=== PATIENT | female | born 1995 | race Caucasian/White ===

== ENCOUNTER 2024-10-08 06:11 | Inpatient (IN) | payer BC, SELFPAY ==
[2024-10-08] VITALS (19 sets, daily range): BP systolic 105–113; BP diastolic 63–73; PULSE 60–116; RESP 16–60; TEMP 36.5–37.1; O2SAT 98–100; BMI 24.0
[2024-10-08 06:06] LABS: Amnisure Rom* POSITIVE
--- NOTE | 2024-10-08 07:31 | P.OBHP_ITS ---
OB - H&P: HPI Labor/Induction History of Present Illness Time Seen by Provider: 07:31 Date Seen: 10/08/24 Chief Complaint: The patient is a 29 year old 1 para 0 at 39.4 weeks gestation by 7 week ultrasound. She presents with SROM. Chief complaint: Maternity : 1 Para: 0 Narrative: Kat Banks is a 29 year old female who present after SROM at 0420 this morning. Patient has a bicornuate uterus. Patient has otherwise had an uncomplicated . History of Present Dating criteria: based on 1st trimester US only (7 days off of LMP, 7 week ultrasound) Ultrasounds: normal 1st trimester US (did have endometrial products on left endometrial canal. ) and normal mid trimester US Medical complications: none Labs Blood type: A (+) positive Rubella: immune RPR/VDLR: nonreactive GBS status: negative HBsAG: negative Review of Systems Status of ROS: Reports: 10 or more systems reviewed and unremarkable except as noted in History and below Meds Home Medications and Allergies Home Medications ?Medication ?Instructions ?Recorded ?Confirmed ?Type multivitamin (Daily Multi-Vitamin 1 tab PO DAILY 10/0810/08/24 History tablet) OB - H&P: Exam Physical Exam: Vital signs: Temp Pulse Resp BP 98.5 F 75 16 113/66 10/08/24 05:45 10/08/24 07:29 10/08/24 05:45 10/08/24 07:29 Constitutional: Constitutional: no acute distress Routine HEENT Exam: Head: Present atraumatic and normal inspection Routine Neck Exam: Neck: Present full ROM Detailed Neck Exam: Thyroids: Thyroid: Present normal Routine Respiratory Exam: Respiratory: Present CTA bilaterally Routine Cardiovascular Exam: Cardiovascular: RRR, S1 and S2 Detailed Labor and Delivery Exam: Patient Gravid: yes Tachysystole: No Fetus (Single): Amniotic Membrane Status: SROM Amniotic Membrane Fluid Description: Clear Heart Rate Baseline: 135 Monitor Accelerations: Present Monitor Decelerations: None Wet Pour Mixer Variability: Moderate (6-25) Routine Back/Spine/Pelvis Exam: Back/Spine: full ROM Routine Skin Exam: Present intact Routine Neurological Exam: Present alert and oriented X3 OB - Problem Based A/P Additional Plan (1) SROM (spontaneous rupture of membranes): Problem details: SROM 10/08 at 0420, clear fluid. Had another large gush while walking into unit. Status: Acute (2) Term : Status: Acute (3) Bicornuate uterus: Problem details: baby is on right side of bicornuate uterus. Status: Acute Plan Patient prefers expectant management - recommend oral cytotec vs IV pitocin if no painful contractions have started after 4 hours of monitoring. - anticipate Delivery/Labor/Induction Plan Plan: expectant management
--- NOTE | 2024-10-08 14:55 | PM.OBPNL ---
Subjective Date Seen: 10/08/24 Narrative: Received report from nursing. Patient rates pain 3/10. continues to desire expectant management. Does not desire any intervention. Ruptured at 0420 this morning. Objective Exam: Exam not performed Vital Signs: Last Vital Signs Temp 97.7 F 10/08/24 14:41 Pulse 71 10/08/24 12:52 Resp 16 10/08/24 14:41 BP 105/66 10/08/24 12:52 Pelvic Exam Dilation (cm): 1.5 Effacement (%): 70 Station: -1 Comments: medium/posterior=-- exam per bedside RN Contractions Contraction Frequency: 5 Contraction pattern: Irregular Assessment Assessment: prodromal labor Station: -1 Amniotic Membrane Status: SROM Status: Category l Heart Rate Baseline: 135 Writer [employer] Publications Variability: Moderate (6-25) Monitor Accelerations: Present Monitor Decelerations: None Plan Plan: - Patient is making slow cervical change. Love score now 6. We have discussed risk of prolonged rupture of membrane including infection risk. Patient continues to desire no intervention at this time. She remains afebrile. Is idania some, has made some cervical change. Slow progress. Will continue to monitor and maternal status. - encourage frequent position changes - favorable enough we may be able to consider pitocin if patient is willing - continue with heart monitoring/intermittent auscultation. - desires no analgesia, anticipate .
--- NOTE | 2024-10-08 22:27 | P.OBPN_ITS ---
Subjective Time Seen by Provider: 22:27 Date Seen: 10/08/24 Narrative: Patient is feeling urge to push with contractions. Has declined monitoring for several hours. She is very uncomfortable. Objective Exam: appears uncomfortable with contractions. Abdomen gravid. Vital Signs: Last Vital Signs Temp 98.3 F 10/08/24 22:22 Pulse 78 10/08/24 21:21 Resp 16 10/08/24 18:45 BP 110/69 10/08/24 21:21 Pelvic Exam Dilation (cm): 6 Effacement (%): 95 Station: +1 Contractions Monitor mode: External Contraction Frequency: 2-3 Contraction pattern: Regular Contraction intensity: Strong/Firm Pitocin Rate (mU/min): 0 Assessment Assessment: active labor Station: +1 Amniotic Membrane Status: SROM Status: Category l Heart Rate Baseline: 120 Retirement Variability: Moderate (6-25) Monitor Accelerations: Present Monitor Decelerations: Early Tracing Comments: Patient allowed monitoring starting at 2210 after conversation of safety of baby. Labor Progress: Progressing well without intervention. Plan Plan: - anticipate - encouraging regular position changes - monitoring as allowed by patient. Discussed risks of not monitoring baby - encourage to support through pain of labor. Bedside nurse Yaquelin at bedside offering non pharmacologic comfort measures. Partner Ernesto at side offering appropriate support.
[2024-10-09] VITALS (15 sets, daily range): BP systolic 100–115; BP diastolic 59–72; PULSE 85–127; RESP 16; TEMP 36.8–36.9; O2SAT 98–99
[2024-10-09] MEDS: OXYTOCIN 10 UNIT/ML INJ IM (00:37)
[2024-10-09] MEDS: LIDOCAINE 1 % PF 30 ML INJECTION (00:49)
--- NOTE | 2024-10-09 01:25 | W.PM.OBVAGDE ---
OB Procedure Vag Delivery Mother Details Mother Details: The patient is a 29 year-old, 1, Para 1, admitted on 10/08/24 at 39.4 Days gestation with SROM at 0420. She declined all intervention, did finally agree to monitoring. Progressed slowly throughout the day. Once active, progressed more rapidly. : 1 Para: 0 Weeks Gestation: 39.5 Admission Date: 10/08/24 Additional Details Amniotic Membrane Status: SROM Amniotic Membrane Rupture Date: 10/08/24 Amniotic Membrane Rupture Time: 04:20 Amniotic Membrane Fluid Description: Clear Analgesia/Anesthesia Type: None Waterbirth: No Pitcoin: No Intrapartal Events: Excessive Bleeding Labor Onset: 20:00 Complete: 00:03 Pushin:06 Heart: heart tones during second stage were reassuring. Did have some late decels with pushing that resolved between contractions. Had terminal decel to 80s and 90s just prior to delivery. Delivery Details Delivery Date: 10/09/24 Delivery Time: 00:33 Route of delivery: Infant Gender: Female Infant Viability: Alive; Heart Rate Present Position at Delivery: OA Delivery Details: Patient was pushing on labor stool. Pushed very effectively and Delivered via spontaneous vaginal delivery. was placed on maternal abdomen.? nuchal cord was delivered through. Cord was clamped and cut after a 60 second delay. Nose and mouth were bulb suctioned.? Infant weight pending. Patient had excessive bleeding while still on birthing stool. Placenta delivered almost immediately after baby spontaneously. We moved mom to bed and found 2nd degree laceration that required repair. Patient had declined pitocin, but agreed to IM pitocin after bleeding was excessive. 1 Minute Interval Total Score: 8 5 Minute Interval Total Score: 9 Additional Details Shoulder Dystocia: No Placenta Delivery Time: 00:36 Placental Delivery Description: Spontaneous Delivery repair: Vicryl Procedure Done: Global Blood Loss: 1,270 Laceration: Vaginal - 2nd Degree Blood Loss Measurement Type: QBL Bakri Used: No Sponge/Need Count Correct: Yes Cord Vessel Description: 3 Vessels, Nuchal Cord and Delivered through Event Summary Status: Mother and infant were stable after delivery. Feeling well. Will continue to monitor bleeding given hemorrhage, though uterus is 2 under umbilicus, firm. Disposition: no change
[2024-10-09] MEDS: ACETAMINOPHEN 500 MG TABLET 1000 MG PO (01:31)
[2024-10-09 06:22] LABS: Hemoglobin* 12.2 gm/dL (12.0-16.0)
[2024-10-10 04:07] VITALS: BP 91/45; PULSE 98; RESP 16; TEMP 36.6; O2SAT 99
[2024-10-10 06:33] LABS: Hemoglobin* 9.8 gm/dL (12.0-16.0)
--- NOTE | 2024-10-10 08:54 | PM.OBDSVD1 ---
DS: Providers Provider Time Seen by Provider: 08:55 Date Seen: 10/10/24 Date of admission: 10/08/24 06:11 Primary care physician: Allyson Diaz MD Admitting Clinician: Barbi Levine MD Attending Physician on discharge: Maru Remy MD Date of Discharge: 10/10/24 DS: Diagnosis Discharge Diagnosis (1) (normal spontaneous vaginal delivery): Status: Acute (2) hemorrhage: Status: Acute Exam Narrative: Exam Narrative: General appearance: Well-appearing adult female. Alert, oriented and appropriate. Sitting up in hospital bed. HEENT: EOMI, no conjunctival injection or discharge. MMM. Neck: Supple. CV: RRR, no rubs, murmurs or extra heart sounds. Pulm: CTAB, no wheezes, rales or rhonchi. Abdomen: Soft, non-tender. Fundus palpated 2 cm below the umbilicus. MSK: Moving all extremities. Ext: Warm and well-perfused. No LE edema. Skin: No rashes appreciated over exposed skin. Neuro: Grossly normal strength and sensation. No focal deficits. Psych: Normal affect. Const: Vital Signs, click to edit/add: Vital Signs - 24 hr 10/09/24 11:58 10/09/24 17:01 10/09/24 20:56 Temperature 98.4 F 98.3 F 98.3 F Pulse Rate [Pulse Oximeter] 92 105 H 88 Respiratory Rate 16 16 16 Blood Pressure [Le ft Arm] 105/69 107/71 100/60 Pulse Oximetry 99 99 98 Oxygen Delivery Me thod Room Air Room Air Room Air 10/10/24 04:07 Temperature 98 F Pulse Rate [Pulse Oximeter] 98 Respiratory Rate 16 Blood Pressure [Le ft Arm] 91/45 L Pulse Oximetry 99 Oxygen Delivery Me thod Room Air OB - DS: Summary Hospital Course Hospital Course: The patient is a 29 year old G 1 now P 1 at 39+5 weeks gestation that was admitted to the Center on 10/08/24 for SROM. She had unmedicated complicated by PPH; received IM pitocin only. Hgb on DOD 9.8. She delivered a viable male infant. She is breast feeding. the patient has done well. Peripartum Data delivery method: Vaginal Laceration description: Perineal - 2nd Degree complications: none [place] Infant Gender: Female Infant Discharge Plan: Home Time Spent with Patient Time attestation: Total time spent providing and/or coordinating discharge services: Discharge Plan Discharge Disposition: Home, Self-Care Date of Admission: 10/08/24 06:11 Attending Provider on Discharge: Maru Remy Primary Care Provider: Allyson Diaz Condition: Stable Anticipated Discharge Date/Time: 10/10/24 13:00 Discharge Medications: New acetaminophen 500 mg Tablet 1,000 mg PO Q6H PRNQty: 30 0RF ferrous sulfate 325 mg (65 mg iron) Tablet 325 mg PO DAILYWM Qty: 30 2RF ibuprofen 600 mg Tablet 600 mg PO Q6H PRNQty: 30 0RF Continued multivitamin [Daily Multi-Vitamin] Tablet 1 tab PO DAILY Discharge Orders: Discharge Order (Routine); Ordered 10/10/24 Ordered By: Maru Remy Patient Education: OB Vaginal/Breast Feeding Activity Level: Activity as Tolerated Discharge Diet: Regular Follow Up Appointments: Allyson Diaz MD [Primary Care Provider, Family Practice] Referral Note: 6 weeks post- visit with Dr. Diaz Forms: [facility] [employer] Info Instructions
[2024-10-10] MEDS: FERROUS SULFATE 325 MG TABLET PO (09:07)
[2024-10-10 09:33] VITALS: BP 105/70; PULSE 80; RESP 17; TEMP 36.8; O2SAT 100
== END 2024-10-10 14:40 | disposition home or self-care (01) | DRG 560 ==
LOC: OB OUT 06:11 → OB 06:11
PROVIDERS: Admitting Provider Student in an Organized Health Care Education/Training Program; PCP Family Medicine; Visit Provider Student in an Organized Health Care Education/Training Program
DX: O42.02 Full-term premature rupture of membranes, onset of labor within 24 hours of rupture (principal); O72.1 Other immediate postpartum hemorrhage; O76 Abnormality in fetal heart rate and rhythm complicating labor and delivery; O70.1 Second degree perineal laceration during delivery; O34.03 Maternal care for unspecified congenital malformation of uterus, third trimester; Q51.3 Bicornate uterus; Z3A.39 39 weeks gestation of pregnancy; Z37.0 Single live birth
CPT/HCPCS: 36415; 84112; 85018; 86592; A9270; J2003; J2590

== ENCOUNTER 2024-12-09 09:09 | Outpatient (CLI) | payer BC, SELFPAY ==
--- NOTE | 2024-12-09 14:37 | W.PM.LAC.MC ---
Consult Note - Mom Date of Visit Date of visit: 12/09/24 Reason for consultation: Assistance Needed, Low Milk Supply (questionable) and Infant Weight Concern Visit Code: Visit Patient's Information Phone number: [phone] Para: 1 Mother's Medical History: Medical History (Updated 10/18/24 @ 00:01 by Background Danael) Bicornuate uterus ?Q51.3 - Bicornate uterus (ICD-10) Delivery Information Delivery type: Vaginal Gestational Age: 39+5 Gestational Weight For Age: AGA Weight: 2.91 kg Baby's Information Baby's Age at Visit: 2 months Baby's Provider or Clinic: [facility] Jaundice: No Past Experience Past Experience: No Current Frequency of Day Feedings: every 2.5-3 hours Frequency of Night Feedings: was going 5-6 hrs stretches, last week or so back to 3-4 hour stretches Both Breasts: Yes Suck: seems strong Latch: comfortable, sometimes on and off during a feeding lately Length of Time: 10-20 min/side Pumping Pumping: Yes Quantity Pumped: barely 1/2 oz after Supplementing EBM Supplement: Yes Formula Supplement: Yes Baby Elimination Number of Wet Diapers a Day: 6 or more Number of BM a Day: 4-6/day Breast/Nipple Condition Breast Information: Breasts are symmetrical with rounded lower quadrants, intramammary distance is less than 1.5 inches. No erythema. Nipples are supple, everted prior to feeding. Mom reports she has had some clogged ducts, but she is able to clear them with some manual hand expression if still feel present after baby feeds. Breast Shape: Round Engorgement: No Maternal Nipple Condition - Left: Common Nipple Maternal Nipple Condition - Right: Common Nipple Sore Nipples: No Baby Assessment Skin: Normal Tongue/frenulum: Normal/elastic Palate: Average Lips: Relaxed and Symmetrical Jaw Alignment: Symmetrical Mucosa: [place], moist Onsite Observation Pre-Feed weight: 4.122 kg Post-Feed weight: 4218 kg Milk Transferred (mL): 80 Position: Cross cradle Attachment/latch-on achieved: With difficulty (baby on and off repeatedly until mom's letdown happened) Suck pattern: Suck burst and normal rest Swallow: Audible, consistent Behavior following feed: Alert, content Pre-Nursing Left Nipple: Within Normal Limits Pre-Nursing Right Nipple: Within Normal Limits Post-Nursing Left Nipple: Within Normal Limits Post-Nursing Right Nipple: Within Normal Limits Assessments/Interventions Assessments/Interventions: Beare latched to mom's LEFT breast, latched well after a few minutes of one and off behavior, then stayed nursing for 16 minutes. Transferred 64 ml of milk Babe then latched to mom's RIGHT breast, latched similarly and nursed for another 15 minutes. Transferred 16 ml of milk. Total milk transferred: 80 ml Babe needed minimal support to stay latched after mom's letdown occurred. Mom did utilize breast compression during feeding to assist baby to stay engaged in feeding a bit longer. Education provided: Asymmetric latch technique for wide/deep latch to increase milk, Transfer for baby and increase comfort for mom, Supply/demand nature of milk supply (try not to go longer than 4 hours at night to maximize mom's milk supply), Need for frequent stimulation/milk removal, Pumping for milk management and Other (food and fluids for mom; discussed calorie needs for mom as she describes herself as a snacker vs meal person; try to have snacks close by when feeding baby to eat; sunflower lecithin discussed for clogged ducts treatment) Feeding Plan: Breastfeed for 15-20 on each breast, listening for active swallowing Pump both breasts for: 15 minutes after each feeding as able to stimulate supply; a full 20 minutes if pumping instead of Feed baby 30 ml of EBM or formula after (based on today's feeding); more if baby acts hungry. Discussed bottle options as baby seems to be having a hard time with the [employer] Karlo bottle. Try skin to skin to increase milk production Consider herbal supplements such as GoLacta, Liquid Gold or More Milk [place] Follow up for weight check and milk transfer assessment in about 1 week, sooner if desired. Follow-Up Suggested follow up: Appointment as needed Time Spent Time spent with patient (min): 90 Meds Home Medications and Allergies Home Medications ?Medication ?Instructions ?Recorded ?Confirmed ?Type multivitamin (Daily Multi-Vitamin 1 tab PO DAILY 10/08/24 10/08/24 History tablet) acetaminophen 500 mg tablet 1,000 mg (2 x 500 mg) PO Q6H PRN 10/10/24 Rx #30 tabs ferrous sulfate 325 mg (65 mg 325 mg PO DAILYWM #30 tabs 10/10/24 Rx iron) tablet ibuprofen 600 mg tablet 600 mg PO Q6H PRN #30 tabs 10/10/24 Rx
== END 2024-12-09 09:10 | disposition home or self-care (01) ==
PROVIDERS: PCP Family Medicine; Visit Provider Family Medicine
DX: Z39.1 Encounter for care and examination of lactating mother (principal)
CPT/HCPCS: G0463

== ENCOUNTER 2025-01-26 10:45 | Outpatient (RCR) | payer BC, SELFPAY | END 2025-04-29 11:34 | disposition home or self-care (01) | PROVIDERS: PCP Family Medicine; Visit Provider Family Medicine | DX: Z39.2 Encounter for routine postpartum follow-up (principal) | CPT/HCPCS: 97110; 97112; 97140; 97161; 97535 ==